=== PATIENT | female | born 1985 | race Asian ===

== ENCOUNTER 2017-06-02 09:53 | Inpatient (IN) | payer OTHER ==
[~2017-06-02] VITALS: Ht 162.6 cm; Wt 72.2 kg
[2017-06-02 10:10] VITALS: Ht 162.6 cm; Wt 72.2 kg
[2017-06-02 10:11] VITALS: BP 100/70; PULSE 89; RESP 18
--- NOTE | 2017-06-02 10:51 | RADRPT ---
PROCEDURE: US OB biophysical profile. CLINICAL INDICATION: decreased movements, labor TECHNIQUE: Multiple sonographic images of the pelvis were obtained. The images were reviewed on a PACS workstation. COMPARISON: No prior studies are available for comparison. FINDINGS: There is a single viable intrauterine gestation. Cardiac activity is present with 129 beats per min [place]in. There is a vertex presentation. The placenta is anterior. There is no evidence of placental abruption. There is a normal amount of amniotic fluid with an FREDY = 9.8 cm. Biophysical profile: movement 2/2 tone 2/2. breathing 2/2 FREDY 2/2 Total 03/26 RPTAT: AA . IMPRESSION: Normal biophysical profile. . .Raz Nelson MD, Date Time Electronically viewed and signed by .Raz Nelson MD, MD on 06/02/2017 10:51 .S/
[2017-06-02] MEDS ORDERED: LACTATED RINGER'S 1,000 ML IV PRN (16:04)
[2017-06-02] MEDS ORDERED: OXYTOCIN 30 UNITS/LR 500 ML IV ONE (16:09)
[2017-06-02 16:12] LABS: BASOPHILS % 0.3 % (0.0-2.0); EOSINOPHILS # 0.1 10^3/ul (0.0-0.5); EOSINOPHILS % 0.8 % (0.0-7.0); HEMATOCRIT 36.3 % (37.0-47.0); HEMOGLOBIN 12.5 g/dl (12.0-16.0); LYMPHOCYTES # 1.7 10^3/ul (0.8-2.9); LYMPHOCYTES % 17.5 % (15.0-51.0); MEAN CORPUSCULAR HEMOGLOBIN 32.1 pg (29.0-33.0); MEAN CORPUSCULAR HGB CONC 34.4 g/dl (32.0-37.0); MEAN CORPUSCULAR VOLUME 93.3 fl (82.0-101.0); MEAN PLATELET VOLUME 11.1 fl (7.4-10.4); MONOCYTE # 0.5 10^3/ul (0.3-0.9); MONOCYTES % 5.4 % (0.0-11.0); NEUTROPHIL # 7.2 10^3/ul (1.6-7.5); NEUTROPHILS % 75.8 % (39.0-77.0); PLATELET COUNT 197 10^3/UL (140-415); RED BLOOD COUNT 3.89 10^6/ul (4.20-5.40); RED CELL DISTRIBUTION WIDTH 12.3 % (11.5-14.5); WHITE BLOOD COUNT 9.5 10^3/ul (4.8-10.8)
[2017-06-02] MEDS: LACTATED RINGER'S 1,000 ML IV SCH ×2 (16:18→23:22)
[2017-06-02] MEDS: OXYTOCIN 30 UNITS/LR 500 ML IV SCH (16:20)
[2017-06-02 16:28] LABS: INR 0.82; PARTIAL THROMBOPLASTIN TIME 26.1 Sec (25.0-35.0); PROTIME 11.3 Sec (12.2-14.2); PT RATIO 0.9
[2017-06-02] MEDS ORDERED: OXYTOCIN 30 UNITS/LR 500 ML IV SCH ×2 (16:30)
[2017-06-02] MEDS ORDERED: IBUPROFEN 600 MG TAB PO PRN (16:30)
[2017-06-02] MEDS ORDERED: MISOPROSTOL 200 MCG TAB PR PRN (16:30)
[2017-06-02] MEDS ORDERED: OXYTOCIN 30 UNITS/LR 500 ML IV PRN (16:30)
[2017-06-02] MEDS ORDERED: BUTORPHANOL 2 MG INJ IV PRN (16:30)
[2017-06-02] MEDS ORDERED: METHYLERGONOVINE 0.2 MG INJ IM PRN (16:30)
[2017-06-02] MEDS ORDERED: CARBOPROST 250 MCG INJ IM PRN (16:30)
[2017-06-02] MEDS ORDERED: LIDOCAINE 1% (MPF) 30 ML INJ INJ PRN (16:30)
[2017-06-03] MEDS ORDERED: MISOPROSTOL 25 MCG CAPSULE PO ONE (07:00)
[2017-06-03] MEDS: LACTATED RINGER'S 1,000 ML IV SCH ×3 (07:30→18:46)
[2017-06-03] MEDS: CLINDAMYCIN 900 MG/D5W (PMX) 50 ML IVPB SCH ×2 (07:33→14:14)
[2017-06-03] MEDS ORDERED: MISOPROSTOL 100 MCG TAB VAG SCH (13:00)
[2017-06-03] MEDS ORDERED: MISOPROSTOL 25 MCG CAPSULE VAG SCH (15:00)
[2017-06-03] MEDS ORDERED: OXYTOCIN 30 UNITS/LR 500 ML IV SCH (16:30)
[2017-06-03] MEDS: OXYTOCIN 30 UNITS/LR 500 ML IV SCH (16:52)
[2017-06-03] MEDS ORDERED: LACTATED RINGER'S 1,000 ML IV ONE (18:04)
[2017-06-03] MEDS ORDERED: FENTAnyl 2MCG/ML-ROPIV 0.2% 100 ML ONE (18:07)
[2017-06-03] MEDS ORDERED: ONDANSETRON 4 MG INJ IV PRN (18:30)
[2017-06-03] MEDS ORDERED: ONDANSETRON 4 MG INJ IV ONE (18:30)
[2017-06-03] MEDS ORDERED: CITRIC ACID/NA CITRATE 30 ML CUP PO ONE (18:30)
[2017-06-03] MEDS ORDERED: NALOXONE (0.4 MG/ML) INJ IV PRN (18:30)
[2017-06-03] MEDS ORDERED: morphine 2 MG INJ IV PRN (18:30)
[2017-06-03] MEDS ORDERED: FENTAnyl 2MCG/ML-ROPIV 0.2% 100 ML BAG EPI SCH (18:30)
[2017-06-03] MEDS ORDERED: morphine 4 MG/ML VIAL IV PRN (18:30)
[2017-06-03] MEDS ORDERED: KETOROLAC 30 MG INJ IV PRN (18:30)
[2017-06-03] MEDS ORDERED: NALBUPHINE HCL (10 MG/1 ML) INJ IV PRN (18:30)
[2017-06-03] MEDS ORDERED: TRIMETHOBENZAMIDE 100 MG/ML VIAL IM PRN (18:30)
[2017-06-03] MEDS ORDERED: DIPHENHYDRAMINE 50 MG INJ IV PRN (18:30)
[2017-06-03] MEDS ORDERED: MISOPROSTOL 200 MCG TAB PR PRN ×2 (20:00→21:00)
[2017-06-03] MEDS ORDERED: LACTATED RINGER'S 1,000 ML IV* SCH (20:52)
--- NOTE | 2017-06-03 20:57 | LDN ---
Date/Time of Note Date/Time of Note DATE: 06/03/17 TIME: 20:55 Delivery Summary of a viable baby boy weighing 3120 grams, or 6# 14 oz, 19.5" long and with Apgars of 8/9. Weeks of Gestation 37w 5d Placenta Delivered: Spontaneously Meconium: none Episiotomy: No Perineal laceration: 1 Laceration repair: First degree perineal laceration repaired with 2-0 chromic. Anesthesia type: Epidural Estimated blood loss: 150 Sponge & Needle done & correct: Yes All needle counts correct: Yes Any foreign bodies felt in the: No (vagina) Problems: Infant Delivery Information Sex Infant Sex: male Apgars 1 Minute: 8 5 Minute: 9 Suctioning Nose & mouth suctioned at andreea: Yes Delee suction performed: No Umbilical Cord Umbilical cord with: 3 Vessels Cord presentations: nuchal cord Nuchal cord present X: 1 Cord Blood was obtained: Yes Mother & Baby Disposition Disposition Mom & Baby to Maternity; Good: Yes Baby to NICU: No ABY MANNING MD Jun 03, 2017 20:57
[2017-06-03] MEDS ORDERED: CARBOPROST 250 MCG INJ IM PRN (21:00)
[2017-06-03] MEDS ORDERED: LANOLIN 7 GM TUBE TOP PRN (21:00)
[2017-06-03] MEDS ORDERED: HYDROCODONE/APAP (5/325) TAB PO PRN (21:00)
[2017-06-03] MEDS ORDERED: METHYLERGONOVINE 0.2 MG INJ IM PRN (21:00)
[2017-06-03] MEDS ORDERED: OXYTOCIN 30 UNITS/LR 500 ML IV PRN (21:00)
--- NOTE | 2017-06-03 21:01 | HP ---
Date/Time of Note Date/Time of Note DATE: 06/03/17 TIME: 20:57 OB - History Hx of Present Free Text/Dictation 32 y.o. with an IUP at 37w 5d on admit came in with ruptured membranes and not in labor and a cervical exam of 70%/3/-2 and a positive ROM-plus test Chief Complaint: SROM Estimated Due Date: Jun 18, 2017 : 2 Para: 1 Care: Good Care Ultrasounds: Normal mid trimester US Obstetrical Complications: None Medical Complications: None Past Family/Social History * Past Medical, Surgical, Family and Obstetric Histories reviewed from chart. Blood Type: AB+ Rubella: immune RPR/VDRL: Negative GBS Status: Negative HBsAG: Negative OB Admission Exam Vital Signs Vital Signs Vital Signs Date Time Temp Pulse Resp B/P Pulse Ox O2 Delivery O2 Flow Rate FiO2 06/02/17 10:11 97.7 89 18 100/70 98 Room Air Physical Exam HEENT: WNL Heart: Rhythm Normal Lungs: Clear Abdomen: WNL Extremities: Normal Reflexes: Normal Cervical Dilatation: 3cm Effacement: 75% Station: -2 Membranes: Ruptured Amniotic Fluid: Clear Heart Rate: 130's Accelerations: Accelerations Present Decelerations: No Decelerations Varibility: Moderate Contractions on Admission: >10 Minutes Apart Last 72 hours Lab Results CBC & BMP 06/02/17 16:00 OB Assessment/Plan Reason for admission: rupture of membranes Plan: Induction, Other Induction Method: per Pitocin Protocol ABY MANNING MD Jun 03, 2017 21:01
[2017-06-03 22:45] VITALS: BP 103/63; PULSE 62; RESP 18
[2017-06-04] MEDS: IBUPROFEN 600 MG TAB PO SCH ×5 (00:32→23:32)
[2017-06-04 04:00] VITALS: BP 99/54; PULSE 71; RESP 18
[2017-06-04 07:45] VITALS: BP 108/69; PULSE 58; RESP 17
[2017-06-04 10:11] LABS: BASOPHILS % 0.4 % (0.0-2.0); EOSINOPHILS # 0.2 10^3/ul (0.0-0.5); EOSINOPHILS % 1.5 % (0.0-7.0); HEMATOCRIT 34.6 % (37.0-47.0); HEMOGLOBIN 11.6 g/dl (12.0-16.0); LYMPHOCYTES # 1.4 10^3/ul (0.8-2.9); LYMPHOCYTES % 12.8 % (15.0-51.0); MEAN CORPUSCULAR HEMOGLOBIN 31.8 pg (29.0-33.0); MEAN CORPUSCULAR HGB CONC 33.5 g/dl (32.0-37.0); MEAN CORPUSCULAR VOLUME 94.8 fl (82.0-101.0); MEAN PLATELET VOLUME 11.1 fl (7.4-10.4); MONOCYTE # 0.7 10^3/ul (0.3-0.9); MONOCYTES % 6.1 % (0.0-11.0); NEUTROPHIL # 8.7 10^3/ul (1.6-7.5); NEUTROPHILS % 78.7 % (39.0-77.0); PLATELET COUNT 173 10^3/UL (140-415); RED BLOOD COUNT 3.65 10^6/ul (4.20-5.40); RED CELL DISTRIBUTION WIDTH 12.3 % (11.5-14.5)
[2017-06-04] MEDS ORDERED: PE/SHARK OIL/MO/PETROL 30 GM OINT PR SCH (10:30)
[2017-06-04] MEDS ORDERED: WITCH HAZEL/GLYCERIN PAD PR PRN (10:30)
[2017-06-04] MEDS: DOCUSATE SODIUM 100 MG CAP PO SCH ×2 (11:35→20:40)
[2017-06-04 12:30] VITALS: BP 103/63; PULSE 55; RESP 18
[2017-06-04 16:10] VITALS: BP 102/66; PULSE 57; RESP 17
[2017-06-04 20:00] VITALS: BP 102/64; PULSE 62; RESP 18
[2017-06-05 04:30] VITALS: BP 108/74; PULSE 56; RESP 20
[2017-06-05] MEDS: IBUPROFEN 600 MG TAB PO SCH (05:34)
[2017-06-05 08:45] VITALS: BP 107/67; PULSE 70; RESP 18
[2017-06-05] MEDS ORDERED: DIPHTH/TET/ACEL PERTUSS (ADULT) 0.5 ML VIAL IM* ONE (09:00)
--- NOTE | 2017-06-05 09:20 | PD.PPDC ---
[facility] Discharge Instruction Condition Patient Condition: Good Diet Diet: Resume Regular Diet Activity/Restrictions Activity: Normal Activity May Shower Restrictions: No Sexual Activity Nothing in the Vagina No [employer] No Tampons, douche Follow-up Follow-up with Physician: 6, Week/Weeks Return to clinic for RADIOGRAPHER CARDIAC CATHETERIZATION Instructions: Fever greater than 101 Chills Worsening abdominal pain Excessive Vaginal Bleeding OB Instructions: Breast Tenderness Depression ABY MANNING MD Jun 05, 2017 09:20
--- NOTE | 2017-06-05 09:23 | DS ---
Date/Time of Note Date/Time of Note DATE: 06/05/17 TIME: 09:22 Obstetrical Discharge Record Final Diagnosis Final Diagnosis: Term delivered Vaginal Delivery Obstetrical Delivery: Spontaneous, Laceration, Repaired Complications Augmentation: Yes Condition on Discharge Physical Assessment Last Vitals: T=98.4 BP 107/67 Voiding: Yes Bowel Movement: Yes Breast: Soft, non-tender Fundus: Firm Episiotomy: Laceration intact Calf Tenderness: No Patient Condition: Good ABY MANNING MD Jun 05, 2017 09:23
[2017-06-05] MEDS: DOCUSATE SODIUM 100 MG CAP PO SCH (09:53)
== END 2017-06-05 12:00 | disposition home or self-care (01) | DRG 775 ==
LOC: OBT 09:53 → L-D 09:55 → OBT 11:45 → PP1 06-03 22:29
PROVIDERS: ADMIT Obstetrics & Gynecology; ATTEND Obstetrics & Gynecology
PROC: 10E0XZZ Delivery of Products of Conception, External Approach (ICD-10-PCS; principal; 2017-06-03)
PROC: 0HQ9XZZ Repair Perineum Skin, External Approach (ICD-10-PCS; 2017-06-03)
PROC: 3E0P3VZ Introduction of Hormone into Female Reproductive, Percutaneous Approach (ICD-10-PCS; 2017-06-03)
DX: O69.81X0 Labor and delivery complicated by cord around neck, without compression, not applicable or unspecified (principal); O70.0 First degree perineal laceration during delivery; Z3A.37 37 weeks gestation of pregnancy; Z37.0 Single live birth
CPT/HCPCS: 36415; 62319; 76818; 84112; 85025; 85610; 85730; 86592; 86900; 86901; 87340; 90715; G0463; J2590; J3010; J7120